=== PATIENT | male | born 2000 | race Caucasian/White ===

== ENCOUNTER 2019-04-13 10:52 | Inpatient (IN) | payer MEDICAID ==
[~2019-04-13] VITALS: Ht 185.4 cm; Wt 101.0 kg
[~2019-04-13 10:52] MED LIST: ARIP10TA33 PO; ATOM10CA PO; BENZ1TAB61 PO; CETI10CA PO; DULO60CA7 PO; GABA100C PO; GABA400C PO; GUAN4TAB2 PO; MEMA10TA PO
[2019-04-13] MEDS ORDERED: ONDANSETRON ODT 4 MG PO PRN (11:00)
[2019-04-13] MEDS ORDERED: POLYETHYLENE GLYCOL 17 GM PACKET PO PRN (11:00)
[2019-04-13] MEDS ORDERED: BISACODYL 10 MG SUPP PR PRN (11:00)
[2019-04-13] MEDS ORDERED: DOCUSATE 100 MG CAPSULE PO PRN (11:00)
[2019-04-13 15:40] LABS: CHOL/HDL RATIO 5.6; FREE T4 (FREE THYROXINE) 1.02 ng/dL (0.76-1.46); LDL/HDL RATIO 3.3 (0.5-3.0)
[2019-04-13] MEDS ORDERED: VENLAFAXINE 75 MG CAP ER PO SCH (17:00)
[2019-04-13] MEDS: GABAPENTIN 300 MG CAPSULE PO SCH ×2 (17:56→20:10)
[2019-04-13] MEDS: HYDROXYZINE PAMOATE 50MG CAP PO SCH (17:59)
[2019-04-13] MEDS: ACETAMINOPHEN 325 MG TABLET PO PRN ×2 (17:59→20:58)
[2019-04-13 19:38] VITALS: BP 139/81
[2019-04-13] MEDS: PRAZOSIN 2 MG CAPSULE PO SCH (20:10)
[2019-04-13] MEDS: QUETIAPINE 100MG TABLET PO SCH (20:11)
[2019-04-13] MEDS: CARBAMAZEPINE 200 MG TABLET PO SCH (20:12)
[2019-04-14 07:43] VITALS: BP 111/62
[2019-04-14] MEDS ORDERED: MAGNESIUM CITRATE 300ML ORAL SOL PO PRN ×2 (08:00)
[2019-04-14] MEDS ORDERED: BISACODYL 10 MG SUPP PR PRN (08:00)
[2019-04-14] MEDS ORDERED: POLYETHYLENE GLYCOL 17 GM PACKET PO PRN (08:00)
[2019-04-14] MEDS: HYDROXYZINE PAMOATE 50MG CAP PO SCH ×2 (08:25→20:21)
[2019-04-14] MEDS: GABAPENTIN 300 MG CAPSULE PO SCH ×3 (08:25→20:20)
[2019-04-14] MEDS: ACETAMINOPHEN 325 MG TABLET PO PRN ×3 (08:25→21:39)
[2019-04-14] MEDS: VENLAFAXINE 75 MG CAP ER PO SCH ×2 (08:25→12:57)
[2019-04-14] MEDS: CARBAMAZEPINE 200 MG TABLET PO SCH ×2 (08:31→20:20)
[2019-04-14 11:12] LABS: MICROSCOPIC NOT IND
[2019-04-14 11:20] LABS: CULTURE INDICATED? NO
[2019-04-14 19:51] VITALS: BP 120/77
[2019-04-14] MEDS: PRAZOSIN 2 MG CAPSULE PO SCH (20:21)
[2019-04-14] MEDS: QUETIAPINE 100MG TABLET PO SCH (20:21)
[2019-04-15 07:05] VITALS: BP 108/59
[2019-04-15] MEDS: VENLAFAXINE 75 MG CAP ER PO SCH ×2 (08:44→10:54)
[2019-04-15] MEDS: CARBAMAZEPINE 200 MG TABLET PO SCH ×2 (08:44→20:54)
[2019-04-15] MEDS: GABAPENTIN 300 MG CAPSULE PO SCH ×3 (08:44→20:50)
[2019-04-15] MEDS: ACETAMINOPHEN 325 MG TABLET PO PRN (10:53)
[2019-04-15 19:26] VITALS: BP 122/75
[2019-04-15] MEDS: PRAZOSIN 2 MG CAPSULE PO SCH (20:50)
[2019-04-15] MEDS: QUETIAPINE 100MG TABLET PO SCH (20:50)
[2019-04-15] MEDS: HYDROXYZINE PAMOATE 50MG CAP PO SCH (20:50)
[2019-04-16 07:50] VITALS: BP 102/68
[2019-04-16] MEDS: CARBAMAZEPINE 200 MG TABLET PO SCH (08:48)
[2019-04-16] MEDS: VENLAFAXINE 75 MG CAP ER PO SCH ×2 (08:49→12:02)
[2019-04-16] MEDS: GABAPENTIN 300 MG CAPSULE PO SCH ×3 (08:49→20:48)
[2019-04-16 19:30] VITALS: BP 140/84
[2019-04-16] MEDS: PRAZOSIN 2 MG CAPSULE PO SCH (20:45)
[2019-04-16] MEDS: QUETIAPINE 100MG TABLET PO SCH (20:45)
[2019-04-16] MEDS: HYDROXYZINE PAMOATE 50MG CAP PO SCH (20:46)
[2019-04-17 07:15] VITALS: BP 112/69
[2019-04-17] MEDS: CARBAMAZEPINE 200 MG TABLET PO SCH ×2 (08:54→12:10)
[2019-04-17] MEDS: VENLAFAXINE 75 MG CAP ER PO SCH ×2 (08:54→12:10)
[2019-04-17] MEDS: GABAPENTIN 300 MG CAPSULE PO SCH ×3 (08:54→20:21)
[2019-04-17] MEDS: ACETAMINOPHEN 325 MG TABLET PO PRN (18:15)
[2019-04-17 20:07] VITALS: BP 116/81
[2019-04-17] MEDS ORDERED: HYDROXYZINE PAMOATE 25MG CAP ONE (20:17)
[2019-04-17] MEDS: PRAZOSIN 2 MG CAPSULE PO SCH (20:21)
[2019-04-17] MEDS: QUETIAPINE 100MG TABLET PO SCH (20:21)
[2019-04-17] MEDS: HYDROXYZINE PAMOATE 50MG CAP PO SCH (20:59)
[2019-04-18 06:00] LABS: ALBUMIN 3.7 g/dL (3.4-5.0); ANION GAP 6 mmol/L (5-15); BASOPHILS # (AUTO) 0.04 x10^3/uL (0-0.3); BASOPHILS % (AUTO) 1 % (0-1); CALCIUM 9.1 mg/dL (8.5-10.1); CHLORIDE 105 mmol/L (98-107); EOSINOPHILS # (AUTO) 0.15 x10^3/uL (0-0.8); EOSINOPHILS % (AUTO) 3 % (1-7); LYMPHOCYTES # (AUTO) 2.79 x10^3/uL (1-6.1); LYMPHOCYTES % (AUTO) 46 % (22-44); MD NO; MEAN CORPUSCULAR HEMOGLOBIN 31.6 pg (27.5-34.5); MEAN CORPUSCULAR HGB CONC 34.7 g/dL (33.2-36.2); MEAN CORPUSCULAR VOLUME 91.2 fL (81-97); MEAN PLATELET VOLUME 7.3 fL (7.4-10.4); MONOCYTES # (AUTO) 0.45 x10^3/uL (0-1.4); MONOCYTES % (AUTO) 7 % (2-9); NEUTROPHILS # (AUTO) 2.69 x10^3/uL (1.8-8.0); NEUTROPHILS % (AUTO) 44 % (42-75); PLATELET COUNT 234 x10^3/uL (130-400); RED BLOOD COUNT 4.74 x10^6/uL (4.38-5.82); RED CELL DISTRIBUTION WIDTH 12.2 % (9.4-14.8)
[2019-04-18 06:05] LABS: ALANINE AMINOTRANSFERASE 33 U/L (12-78); ALKALINE PHOSPHATASE 82 U/L (45-117); BILIRUBIN,TOTAL 0.3 mg/dL (0.2-1.0); CREATININE 0.94 mg/dL (0.7-1.3); TOTAL PROTEIN 7.3 g/dL (6.4-8.2)
[2019-04-18 07:17] VITALS: BP 114/70
[2019-04-18] MEDS: GABAPENTIN 300 MG CAPSULE PO SCH ×3 (08:53→20:21)
[2019-04-18] MEDS: VENLAFAXINE 75 MG CAP ER PO SCH ×2 (08:53→12:05)
[2019-04-18] MEDS: CARBAMAZEPINE 200 MG TABLET PO SCH ×2 (08:53→12:05)
[2019-04-18] MEDS ORDERED: GOLYTELY 4,000ML ORAL.SOL PO ONE (10:00)
[2019-04-18 19:00] VITALS: BP 125/78
[2019-04-18] MEDS ORDERED: HYDROXYZINE PAMOATE 25MG CAP ONE (20:16)
[2019-04-18] MEDS: PRAZOSIN 2 MG CAPSULE PO SCH (20:17)
[2019-04-18] MEDS: QUETIAPINE 100MG TABLET PO SCH (20:17)
[2019-04-18] MEDS: HYDROXYZINE PAMOATE 50MG CAP PO SCH (20:18)
[2019-04-19 07:16] VITALS: BP 92/56
[2019-04-19] MEDS: VENLAFAXINE 75 MG CAP ER PO SCH ×2 (08:11→11:40)
[2019-04-19] MEDS: CARBAMAZEPINE 200 MG TABLET PO SCH ×2 (08:11→11:40)
[2019-04-19] MEDS: GABAPENTIN 300 MG CAPSULE PO SCH ×3 (08:11→20:33)
[2019-04-19 19:00] VITALS: BP 124/83
[2019-04-19] MEDS: ACETAMINOPHEN 325 MG TABLET PO PRN (20:10)
[2019-04-19] MEDS ORDERED: HYDROXYZINE PAMOATE 25MG CAP ONE ×2 (20:31→20:42)
[2019-04-19] MEDS: PRAZOSIN 2 MG CAPSULE PO SCH (20:33)
[2019-04-19] MEDS: QUETIAPINE 100MG TABLET PO SCH (20:33)
[2019-04-19] MEDS: HYDROXYZINE PAMOATE 50MG CAP PO SCH (20:34)
[2019-04-20 07:15] VITALS: BP 109/74
[2019-04-20] MEDS: GABAPENTIN 300 MG CAPSULE PO SCH ×3 (08:16→20:25)
[2019-04-20] MEDS: CARBAMAZEPINE 200 MG TABLET PO SCH ×2 (08:16→12:25)
[2019-04-20] MEDS: VENLAFAXINE 75 MG CAP ER PO SCH ×2 (08:16→12:24)
[2019-04-20] MEDS ORDERED: PROPOFOL 10 MG/ML, 20ML ONE ×3 (09:55)
[2019-04-20] MEDS ORDERED: MAGNESIUM CITRATE 300ML ORAL SOL PO ONE (11:00)
[2019-04-20 19:15] VITALS: BP 122/82
[2019-04-20] MEDS: PRAZOSIN 2 MG CAPSULE PO SCH (20:25)
[2019-04-20] MEDS: HYDROXYZINE PAMOATE 50MG CAP PO SCH (20:25)
[2019-04-20] MEDS: QUETIAPINE 100MG TABLET PO SCH (20:25)
[2019-04-20] MEDS: ACETAMINOPHEN 325 MG TABLET PO PRN (20:26)
[2019-04-20 21:15] VITALS: BP 102/65
[2019-04-21 07:16] VITALS: BP 113/74
[2019-04-21] MEDS: GABAPENTIN 300 MG CAPSULE PO SCH (08:52)
[2019-04-21] MEDS: VENLAFAXINE 75 MG CAP ER PO SCH (08:52)
[2019-04-21] MEDS: CARBAMAZEPINE 200 MG TABLET PO SCH (08:52)
[2019-04-21] MEDS: ACETAMINOPHEN 325 MG TABLET PO PRN (08:53)
[2019-04-21] MEDS ORDERED: CARB200T4 PO (09:51)
[2019-04-21] MEDS ORDERED: QUET100T PO (09:51)
[2019-04-21] MEDS ORDERED: GABA300C10 PO (09:51)
[2019-04-21] MEDS ORDERED: VENL75CA6 PO ×2 (09:51)
[2019-04-21] MEDS ORDERED: HYDR50CA2 PO (09:51)
[2019-04-21] MEDS ORDERED: PRAZ2CAP2 PO (09:51)
== END 2019-04-21 10:55 | disposition home or self-care (01) | DRG 753 ==
LOC: 3E 14:28
PROVIDERS: ADMIT Psychiatry & Neurology Psychosomatic Medicine; ATTEND Psychiatry & Neurology Psychosomatic Medicine
PROC: 0DJD8ZZ Inspection of Lower Intestinal Tract, Via Natural or Artificial Opening Endoscopic (ICD-10-PCS; principal; 2019-04-20 09:00)
DX: F31.30 Bipolar disorder, current episode depressed, mild or moderate severity, unspecified (principal); T18.4XXA Foreign body in colon, initial encounter; G40.909 Epilepsy, unspecified, not intractable, without status epilepticus; Z91.19 Patient's noncompliance with other medical treatment and regimen; S40.812A Abrasion of left upper arm, initial encounter; F43.10 Post-traumatic stress disorder, unspecified; F84.0 Autistic disorder; J45.909 Unspecified asthma, uncomplicated; M19.90 Unspecified osteoarthritis, unspecified site; K59.00 Constipation, unspecified; F90.9 Attention-deficit hyperactivity disorder, unspecified type; G47.00 Insomnia, unspecified; X78.8XXA Intentional self-harm by other sharp object, initial encounter; Y93.89 Activity, other specified; Y92.89 Other specified places as the place of occurrence of the external cause; Y99.8 Other external cause status; Z79.899 Other long term (current) drug therapy; Z87.891 Personal history of nicotine dependence
CPT/HCPCS: 36415; 71045; 74018; 80053; 80061; 81003; 84439; 84443; 85025; 93005; J2704